=== PATIENT | female | born 1990 | race Two or more races ===

== ENCOUNTER 2016-10-27 21:20 | Emergency (ER) | payer MEDICAID ==
[~2016-10-27] VITALS: Ht 154.9 cm; Wt 52.2 kg
[2016-10-27 21:26] VITALS: BP 126/80
--- NOTE | 2016-10-27 22:16 | NUR ---
CALLED PT IN [place], NO REPONSE
== END 2016-10-28 00:30 | disposition left against medical advice (07) ==
LOC: ER 21:22
DX: Z53.21 Procedure and treatment not carried out due to patient leaving prior to being seen by health care provider (principal)
CPT/HCPCS: A4606; Z7610